=== PATIENT | male | born 1995 | race Caucasian/White ===

== ENCOUNTER 2019-03-13 08:20 | Emergency (ER) | payer OTHER, SELFPAY ==
[2019-03-13 08:26] VITALS: BP 124/81; PULSE 75; RESP 15; TEMP 36.5; O2SAT 98
[2019-03-13] MEDS: Tetracaine 0.5% 4 ML BTL (08:37)
[2019-03-13] MEDS: Fluorescein STRIPS 100/BOX 1 MG (08:37)
[2019-03-13] MEDS: Balanced Salt Solution 15 ML BTL (08:38)
[2019-03-13] MEDS: Erythromycin Ophth Oint 3.5 GM TUBE (08:38)
--- NOTE | 2019-03-13 08:42 | W.ED.GENAD ---
Discharge Plan Disposition Condition: Stable Discharge Details Chief Complaint: EyeProblem Clinical Impression: Welders' keratitis of both eyes Primary Care Provider: None,None ED Provider: Dante Lawrence Home Meds and New Rx's Prescriptions: No Action No Known Home Meds RF: 0 Discharge Instructions Instructions: Corneal Flash Johnson (ED) Additional Instructions: Tylenol 600 5975 mg every 6 hours. Do not exceed 4 g/day. Ibuprofen 800 mg every 8 hours, with food. Erythromycin ointment 4 times daily to both eyes. We will refer you to [facility] for follow-up. Please call the office on Friday for appointment time. 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 He is afebrile, otherwise well-appearing with exam that is notable for injected conjunctiva and sclera bilaterally with superficial punctate keratitis on fluorescein examination. His visual acuity corrected to 20/25. We will have him follow-up with [facility] for recheck. We will treat him with analgesics and 4 times daily erythromycin ointment. HPI General Mode of arrival: ambulatory. Date/Time Provider Initiated Documentation: 03/13/19 08:21. Limitations to Documentation: no limitations. Information obtained by: patient. History of Present Illness 23 year old M presents to the emergency department with the chief complaint of Bilateral eye pain after welding, described as moderate and similar to prior episodes, Quality is described as dull and constant, and is localized to the eyes. Patient reports no radiation. Patient started experiencing this hour(s) and it has been constant. No exacerbating factors reported . Patient did receive the following treatments prior to arrival, none Related Data Home Medications Medication Instructions Recorded Confirmed Unknown [No Known Home Meds] 05/08/15 03/13/19 Allergies Allergy/AdvReac Type Severity Reaction Status Date / Time No Known Allergies Allergy Unverified 03/13/19 08:30 General Stated Complaint: EyeProblem SALENA: 4 Review of Systems Review of Systems Otherwise healthy young man. No other complaint [facility] Social History Smoking/Tobacco Use Status: Current every day Alcohol Intake: current Alcohol Intake frequency: 0-2 drinks per day Alcohol type: beer Drug use: Daily Substance use type: marijuana Do you feel safe at home: Yes Do you feel safe in your relationship?: Yes Exam Narrative Exam Narrative: GEN: awake, alert, oriented 3. Pleasant, well groomed, interactive. HEAD: Normocephalic, atraumatic ENT: Mucous membranes moist, oropharynx unremarkable, External ear exam unremarkable EYES: PERRL, EOMI, bilateral conjunctival and scleral injection. Floor seen stain reveals punctate keratitis. No large lesions, the axis of vision is intact, initial visual acuity 20/100, after lidocaine and irrigation, 20/25 right, left, both NECK: Full ROM, no GEOFFREY, no menigismus CHEST/RESP: Nontender, clear to auscultation bilateral, no wheeze/rhonchi/rales CARDIOVASCULAR: RRR, no murmur, rub sandip. 2+ Rad pulse bilateral EXT: Full ROM, no edema, no rash Neuro: Grossly normal neurologic exam, conversant, interactive. Psych: Speech fluent, thoughts congruent, affect normal Course Vital Signs Temperature 36.5 C 03/13/19 08:26 Pulse 75 03/13/19 08:26 Respiratory Rate 15 03/13/19 08:26 Blood Pressure 124/81 03/13/19 08:26 Pulse Oximetry 98 03/13/19 08:26 Temperature 36.5 C 03/13/19 08:26 Temperature Source Temporal Artery Scan 03/13/19 08:26 Pulse 75 03/13/19 08:26 Respiratory Rate 15 03/13/19 08:26 Respiratory Effort Non-Labored 03/13/19 08:28 Blood Pressure 124/81 03/13/19 08:26 Blood Pressure Position Supine 03/13/19 08:26 Pulse Oximetry 98 03/13/19 08:26 Oxygen Delivery Method Room Air 03/13/19 08:26 Oxygen Flow Rate 0 03/13/19 08:26 Pain Level 8 03/13/19 08:26
--- NOTE | 2019-03-13 08:46 | ED.GENADUL_ITS ---
Discharge Plan Disposition Condition: Stable Discharge Details Chief Complaint: EyeProblem Clinical Impression: Welders' keratitis of both eyes Primary Care Provider: None,None ED Provider: Dante Lawrence Home Meds and New Rx's Prescriptions: No Action No Known Home Meds RF: 0 Discharge Instructions Instructions: Corneal Flash Johnson (ED) Additional Instructions: Tylenol 600 5975 mg every 6 hours. Do not exceed 4 g/day. Ibuprofen 800 mg every 8 hours, with food. Erythromycin ointment 4 times daily to both eyes. We will refer you to [facility] for follow-up. Please call the office on Friday for appointment time. 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 He is afebrile, otherwise well-appearing with exam that is notable for injected conjunctiva and sclera bilaterally with superficial punctate keratitis on fluorescein examination. His visual acuity corrected to 20/25. We will have him follow-up with [facility] for recheck. We will treat him with analgesics and 4 times daily erythromycin ointment. HPI General Mode of arrival: ambulatory . Date/Time Provider Initiated Documentation: 03/13/19 08:21 . Limitations to Documentation: no limitations . Information obtained by: patient . History of Present Illness 23 year old M presents to the emergency department with the chief complaint of Bilateral eye pain after welding, described as moderate and similar to prior episodes, Quality is described as dull and constant, and is localized to the eyes. Patient reports no radiation. Patient started experiencing this hour(s) and it has been constant. No exacerbating factors reported . Patient did receive the following treatments prior to arrival, none Related Data Home Medications Medication Instructions Recorded Confirmed Unknown [No Known Home Meds] 05/08/15 03/13/19 Allergies Allergy/AdvReac Type Severity Reaction Status Date / Time No Known Allergies Allergy Unverified 03/13/19 08:30 General Stated Complaint: EyeProblem SALENA: 4 Review of Systems Review of Systems Otherwise healthy young man. No other complaint [facility] Social History Smoking/Tobacco Use Status: Current every day Alcohol Intake: current Alcohol Intake frequency: 0-2 drinks per day Alcohol type: beer Drug use: Daily Substance use type: marijuana Do you feel safe at home: Yes Do you feel safe in your relationship?: Yes Exam Narrative Exam Narrative: GEN: awake, alert, oriented 3. Pleasant, well groomed, interactive. HEAD: Normocephalic, atraumatic ENT: Mucous membranes moist, oropharynx unremarkable, External ear exam unremarkable EYES: PERRL, EOMI, bilateral conjunctival and scleral injection. Floor seen stain reveals punctate keratitis. No large lesions, the axis of vision is intact, initial visual acuity 20/100, after lidocaine and irrigation, 20/25 right, left, both NECK: Full ROM, no GEOFFREY, no menigismus CHEST/RESP: Nontender, clear to auscultation bilateral, no wheeze/rhonchi/rales CARDIOVASCULAR: RRR, no murmur, rub sandip. 2+ Rad pulse bilateral EXT: Full ROM, no edema, no rash Neuro: Grossly normal neurologic exam, conversant, interactive. Psych: Speech fluent, thoughts congruent, affect normal Course Vital Signs Temperature 36.5 C 03/13/19 08:26 Pulse 75 03/13/19 08:26 Respiratory Rate 15 03/13/19 08:26 Blood Pressure 124/81 03/13/19 08:26 Pulse Oximetry 98 03/13/19 08:26 Temperature 36.5 C 03/13/19 08:26 Temperature Source Temporal Artery Scan 03/13/19 08:26 Pulse 75 03/13/19 08:26 Respiratory Rate 15 03/13/19 08:26 Respiratory Effort Non-Labored 03/13/19 08:28 Blood Pressure 124/81 03/13/19 08:26 Blood Pressure Position Supine 03/13/19 08:26 Pulse Oximetry 98 03/13/19 08:26 Oxygen Delivery Method Room Air 03/13/19 08:26 Oxygen Flow Rate 0 03/13/19 08:26 Pain Level 8 03/13/19 08:26
[2019-03-13] MEDS: Erythromycin Ophth Oint 3.5 GM TUBE OP (08:47)
--- NOTE | 2019-03-13 08:52 | NUR.NOTE ---
Nursing Note: Faxed referral to [facility] for follow up appt on March 15. note also faxed. Deysi Elam.
--- NOTE | 2019-03-20 11:27 | NUR.NOTE ---
Referral for PCP establish faxed to [facility] Dr. Preet Mccormick telephone doc.Nursing Note:
== END 2019-03-13 08:51 ==
LOC: ER 09:08
PROVIDERS: Emergency Provider Emergency Medicine
DX: H16.133 Photokeratitis, bilateral (principal)
CPT/HCPCS: 99283

== ENCOUNTER 2019-04-20 20:10 | Emergency (ER) | payer OTHER, SELFPAY ==
--- NOTE | 2019-04-20 20:23 | NUR.NOTE ---
Nursing Note: pt cut left foot inbatween 5th and 4th digit on clean sheet metal. pt is up to date on t-dap pt cleaned cut with clean water alcohol and bandaged with nespornin
[2019-04-20 20:25] VITALS: BP 118/69; PULSE 76; RESP 15; TEMP 37.2; O2SAT 98
--- NOTE | 2019-04-20 20:59 | ED.GENADUL_ITS ---
Discharge Plan Disposition Patient Disposition: HOME Condition: Stable Discharge Details Chief Complaint: Laceration Clinical Impression: Laceration of foot, left Primary Care Provider: None,None ED Provider: Rah Richardson Home Meds and New Rx's Prescriptions: No Action No Known Home Meds RF: 0 Discharge Instructions Instructions: Care For Your Stitches (ED), Skin Adhesive Care (ED) Additional Instructions: return in 7 days to have wound evaluated for possible suture removal if redness spreads up the leg, you have severe pain or yellow/white discharge return to the emergency department Medical Decision Making pt states a few horus ago he accidentally cut he area between the 4th and 5th toes of left foot on sheet metal at home. Dneies loc or falling. He has a 2cm laceration between the two toes, bleeding controlled prior to arrival, intact sensation and full rom. Will suture and d/c home, return precautions given Differential Diagnosis laceration, abrasion HPI General Mode of arrival: ambulatory . Date/Time Provider Initiated Documentation: 04/20/19 20:22 . Limitations to Documentation: no limitations . Information obtained by: patient . History of Present Illness 23 year old M presents to the emergency department with the chief complaint of left foot laceration, described as moderate, Quality is described as aching, Patient started experiencing this hour(s) (3) and it has been constant. No relieving factors improve symptom(s), No exacerbating factors reported . Patient notes no other symptoms.. Related Data Home Medications Medication Instructions Recorded Confirmed Unknown [No Known Home Meds] 05/08/15 04/20/19 Allergies Allergy/AdvReac Type Severity Reaction Status Date / Time No Known Allergies Allergy Unverified 04/20/19 20:27 General Stated Complaint: Laceration SALENA: 4 Review of Systems Review of Systems All systems reviewed & are unremarkable except as noted in HPI and below Constitutional Denies weakness Cardiovascular Denies chest pain and Denies dyspnea Respiratory Denies cough and Denies dyspnea Gastrointestinal Denies abdominal pain, Denies nausea and Denies vomiting Neurologic Denies weakness Endocrine Denies heat intolerance [facility] Social History Smoking/Tobacco Use Status: Current every day Tobacco Type: cigarettes Alcohol Intake: current Alcohol Intake frequency: 3 or more drinks per day Alcohol type: beer Drug use: Daily Substance use type: marijuana Do you feel safe at home: Yes Do you feel safe in your relationship?: Yes Exam Const General: no acute distress Orientation: alert HENMT Head: normal to inspection Ears: external ears normal General nose exam: external nose normal Mouth: moist mucous membranes Eyes General: appearance normal, both eyes and all related structures Neck Neck: normal visual inspection Resp Effort & Inspection: normal respiratory effort and able to speak in complete sentences Cardio Rate: regular rate Skin General skin exam: no rashes or lesions noted Neuro General: alert and oriented x3 Extrem General: full ROM Psych Mental Status: mental status grossly normal Course Vital Signs Temperature 37.2 C 04/20/19 20:25 Pulse 76 04/20/19 20:25 Respiratory Rate 15 04/20/19 20:25 Blood Pressure 118/69 04/20/19 20:25 Pulse Oximetry 98 04/20/19 20:25 Temperature 37.2 C 04/20/19 20:25 Temperature Source Skin 04/20/19 20:25 Pulse 76 04/20/19 20:25 Respiratory Rate 15 04/20/19 20:25 Respiratory Effort 04/20/19 20:27 Blood Pressure 118/69 04/20/19 20:25 Blood Pressure Position Supine 04/20/19 20:25 Pulse Oximetry 98 04/20/19 20:25 Oxygen Delivery Method Room Air 04/20/19 20:25 Oxygen Flow Rate 0 04/20/19 20:25 Pain Level 3 04/20/19 20:25 Procedures Laceration Laceration 1: Site: lower extremity Side (If applicable): left Size (cm): 2 Description: linear Depth: simple, single layer Local Anesthetic: Lidocaine 1% and with Epi Amount of anesthesia used (mL): 6 Pre-repair: wound explored and irrigated extensively Skin layer closed with: nylon and other (and skin adhesive as well) Size (cm): 4-0 Number of sutures: 2 Technique: simple, interrupted
[2019-04-20 21:04] VITALS: BP 118/69; PULSE 76; RESP 15; TEMP 37.2; O2SAT 98
== END 2019-04-20 21:07 | disposition home or self-care (01) ==
PROVIDERS: Emergency Provider Emergency Medicine
DX: S91.312A Laceration without foreign body, left foot, initial encounter (principal); W26.8XXA Contact with other sharp object(s), not elsewhere classified, initial encounter
CPT/HCPCS: 12001